=== PATIENT | male | born 1985 | race African-American/Black ===

== ENCOUNTER 2017-03-13 20:45 | Emergency (ER) | payer SELFPAY ==
[2017-03-13] MEDS ORDERED: Bicillin LA 1.2 MILLION UNITS/2 ML SYRINGE ONE (21:12)
[2017-03-13] MEDS ORDERED: Promethazine HCl 25 MG/ML VIAL ONE (21:40)
== END 2017-03-13 22:04 | disposition home or self-care (01) ==
LOC: SCSER 20:45
DX: K04.7 Periapical abscess without sinus (principal); K02.9 Dental caries, unspecified; J45.909 Unspecified asthma, uncomplicated
CPT/HCPCS: 96372; J0561; J1170; J2550

== ENCOUNTER 2017-04-14 10:15 | Emergency (ER) | payer BC, SELFPAY ==
[2017-04-14] MEDS ORDERED: Ondansetron ODT 4 MG TAB ONE (10:42)
== END 2017-04-14 11:18 | disposition home or self-care (01) ==
LOC: SCSER 10:15
DX: B34.9 Viral infection, unspecified (principal); J06.9 Acute upper respiratory infection, unspecified; J45.909 Unspecified asthma, uncomplicated
CPT/HCPCS: 99283; Q0162

== ENCOUNTER 2019-02-26 05:40 | Emergency (ER) | payer OTHER | END 2019-02-26 05:55 | disposition home or self-care (01) | LOC: SCSER 05:40 | DX: L98.9 Disorder of the skin and subcutaneous tissue, unspecified (principal); J45.909 Unspecified asthma, uncomplicated; Z79.51 Long term (current) use of inhaled steroids | CPT/HCPCS: 99281 ==